=== PATIENT | male | born 1985 ===

== ENCOUNTER 2019-03-22 06:38 | Emergency (ER) | payer SELFPAY ==
[2019-03-22 06:42] VITALS: BP 124/86
[2019-03-22] MEDS ORDERED: ASPIRIN PO ONE (06:44)
--- NOTE | 2019-03-22 07:16 | XRay Report ---
PROCEDURE: XR CHEST 1V AP TECHNIQUE: Chest radiograph single view. HISTORY: Chest Pain COMPARISONS: None . FINDINGS: Heart: Normal. Mediastinum/Vessels: Normal. Lungs/Pleural space: Normal. Bony thorax: No acute osseous abnormality. Life support devices: None. IMPRESSION: No acute cardiopulmonary abnormality. This document is electronically signed by Miguel Angel Farrell MD., March 22 2019 07:14:29 AM ET
== END 2019-03-22 08:00 | disposition left against medical advice (07) ==
LOC: ED 06:38
DX: R07.89 Other chest pain (principal); Z53.21 Procedure and treatment not carried out due to patient leaving prior to being seen by health care provider
CPT/HCPCS: 71045; 93005; 93010